=== PATIENT | male | born 1990 | race Caucasian/White ===

== ENCOUNTER 2017-02-03 10:40 | Emergency (ER) | payer SELFPAY ==
[~2017-02-03] VITALS: Ht 160 cm; Wt 72.7 kg
[2017-02-03 10:43] VITALS: BP 134/76; PULSE 66; RESP 14; TEMP 97.9; O2SAT 100
[2017-02-03 10:52] VITALS: BP 134/76; PULSE 65; RESP 14; TEMP 97.9; O2SAT 100
[2017-02-03 10:55] VITALS: O2SAT 99
[2017-02-03] MEDS ORDERED: hydrOXYzine PAMOATE 25 MG CAP PO ONE (11:00)
[2017-02-03 11:10] LABS: AUTOMATED NEUTROPHIL # 4.6 TH/MM3 (1.8-7.7); BASOPHIL # 0.1 TH/MM3 (0-0.2); BASOPHIL % 1.1 % (0.0-2.0); EOSINOPHIL # 0.3 TH/MM3 (0-0.4); EOSINOPHIL % 3.4 % (0.0-4.0); HEMATOCRIT 45.4 % (39.0-51.0); HEMO FLAGS DIFF FINAL; LYMPH % 25.7 % (9.0-44.0); MEAN CELL VOLUME 85.4 FL (80.0-100.0); MEAN CORPUSCULAR HEMOGLOBIN 29.3 PG (27.0-34.0); MEAN CORPUSCULAR HGB CONC 34.3 % (32.0-36.0); MONO % 9.7 % (0.0-8.0); NEUT % 60.1 % (16.0-70.0); PLATELET COUNT 262 TH/MM3 (150-450); RED BLOOD COUNT 5.32 MIL/MM3 (4.50-5.90); RED CELL DISTRIBUTION WIDTH 14.3 % (11.6-17.2); WHITE BLOOD COUNT 7.7 TH/MM3 (4.0-11.0)
--- NOTE | 2017-02-03 11:22 | PD ---
HPI Chief Complaint: Respiratory Distress Time Seen by Provider: 10:45 Travel History International Travel<30 days: No Contact w/Intl Traveler<30days: No Traveled to known affect area: No History of Present Illness HPI This is a 26-year-old male with a history of panic attacks, and presents today with respiratory distress. The patient states that about an hour ago, he started feeling short of breath. The called 911 and when paramedics arrived and placed him on oxygen and he stated he felt much better. When the patient arrived, he was taken off his oxygen. His O2 sat was 100%. EKG showed sinus bradycardia with a rate of 59 with no evidence of acute findings. The patient states he feels much improved. He denies any chest pain, chest pressure. He denied any long car rides or car trips. He denies any trauma to his legs or extremities. He does report that he's had an elevated heart rate in the past. He reports his been over 200 and thought that the term SVT sounded familiar. There are no other complaints time of my examination. [facility] Past Medical History Anxiety: Yes Heart Rhythm Problems: Yes (SVT) Cardiovascular Problems: Yes (SVT) Past Surgical History Surgical History: No Previous Surgery Social History Alcohol Use: No Tobacco Use: Yes Substance Use: Yes (DAILY, 02/03/17) Allergies-Medications (Allergen,Severity, Reaction): Coded Allergies: No Known Allergies (Unverified , 02/03/17) Reported Meds & Prescriptions Reported Meds & Active Scripts Active Vistaril (Hydroxyzine Pamoate) 25 Mg Cap 25 Mg PO TID PRN Review of Systems Except as stated in HPI: all other systems reviewed are Neg HENT: No: Headaches, Lightheadedness Cardiovascular: No: Chest Pain or Discomfort, Palpitations Respiratory: Positive: Shortness of Breath (resolved), No: Cough Gastrointestinal: No: Nausea, Vomiting, Abdominal Pain Genitourinary: No: Urgency, Frequency, Nocturia Musculoskeletal: No: Weakness, Pain Neurologic: No: Weakness, Dizziness, Headache Physical Exam Narrative GENERAL: Well-nourished, well-developed patient. SKIN: Focused skin assessment warm/dry. HEAD: Normocephalic. EYES: No scleral icterus. No injection or drainage. NECK: Supple, trachea midline. No JVD or lymphadenopathy. CARDIOVASCULAR: Sinus bradycardia with a rate of 58, 59 and normal rhythm without murmurs, gallops, or rubs. RESPIRATORY: Breath sounds equal bilaterally. No accessory muscle use. GASTROINTESTINAL: Abdomen soft, non-tender, nondistended. MUSCULOSKELETAL: No cyanosis, or edema. NEUROLOGICAL: Awake and alert. Cranial nerves II through XII intact. Motor grossly within normal limits. Five out of 5 muscle strength in all muscle groups. Normal speech. Data Data Last Documented VS Vital Signs Date Time Temp Pulse Resp B/P Pulse Ox O2 Delivery O2 Flow Rate FiO2 02/03/17 10:55 99 Room Air 02/03/17 10:52 97.9 65 14 134/76 Orders Electrocardiogram (02/03/17 10:52) Complete Blood Count With Diff (02/03/17 10:52) Basic Metabolic Panel (Bmp) (02/03/17 10:52) Iv Access Insert/Monitor (02/03/17 10:52) Ecg Monitoring (02/03/17 10:52) Oximetry (02/03/17 10:52) Hydroxyzine Pamoate (Vistaril) (02/03/17 11:00) Chest, Single Ap (02/03/17 11:22) Labs Laboratory Tests Test 02/03/17 10:55 White Blood Count 7.7 TH/MM3 Red Blood Count 5.32 MIL/MM3 Hemoglobin 15.6 GM/DL Hematocrit 45.4 % Mean Corpuscular Volume 85.4 FL Mean Corpuscular Hemoglobin 29.3 PG Mean Corpuscular Hemoglobin 34.3 % Concent Red Cell Distribution Width 14.3 % Platelet Count 262 TH/MM3 Mean Platelet Volume 8.5 FL Neutrophils (%) (Auto) 60.1 % Lymphocytes (%) (Auto) 25.7 % Monocytes (%) (Auto) 9.7 % Eosinophils (%) (Auto) 3.4 % Basophils (%) (Auto) 1.1 % Neutrophils # (Auto) 4.6 TH/MM3 Lymphocytes # (Auto) 2.0 TH/MM3 Monocytes # (Auto) 0.7 TH/MM3 Eosinophils # (Auto) 0.3 TH/MM3 Basophils # (Auto) 0.1 TH/MM3 CBC Comment DIFF FINAL Differential Comment Sodium Level 137 MEQ/L Potassium Level 4.1 MEQ/L Chloride Level 105 MEQ/L Carbon Dioxide Level 19.5 MEQ/L Anion Gap 13 MEQ/L Blood Urea Nitrogen 9 MG/DL Creatinine 0.82 MG/DL Estimat Glomerular Filtration 115 ML/MIN Rate Random Glucose 94 MG/DL Calcium Level 9.7 MG/DL MDM Medical Decision Making Medical Screen Exam Complete: Yes Emergency Medical Condition: Yes Differential Diagnosis Panic attack versus SVT that resolved versus anemia versus pulmonary embolus Narrative Course 26-year-old male presents after having what seems to be a panic attack. The patient's had previous panic attacks. Patient's chest x-ray, EKG, and blood work appear fine other than a low sodium bicarbonate which be consistent with hyperventilation syndrome. The patient was given 25 mg of Vistaril by mouth. He is asymptomatic. He'll be discharged with a prescription for Vistaril told to take 25 mg 3 times a day as needed for anxiety. He is instructed to find a primary care physician in the area since he'll be moving here for work. Diagnosis Primary Impression: suspected panic attack Additional Instructions: Avoid stressful situations. Follow up with primary care physician. Med/Other Pt SpecificInfo: Prescription(s) given Scripts Hydroxyzine Pamoate (Vistaril)25 Mg Cap25 Mg PO TID PRN (ANXIETY) #20 CAP Ref 0 Prov:Kenrick Masters MD 02/03/17 Disposition: 01 DISCHARGE HOME Condition: Stable Kenrick Masters MD Feb 03, 2017 11:22
[2017-02-03 11:25] LABS: BICARBONATE 19.5 MEQ/L (21.0-32.0)
[2017-02-03 11:28] LABS: POTASSIUM 4.1 MEQ/L (3.5-5.1)
--- NOTE | 2017-02-03 11:52 | RADRPT ---
EXAM DATE/TIME: 02/03/2017 11:39 [facility] COMPARISON: No previous studies available for comparison. INDICATIONS : Shortness of breath. MEDICAL HISTORY : Asthma. SURGICAL HISTORY : None. ENCOUNTER: Initial ACUITY: 2 days PAIN SCORE: 0/10 LOCATION: Bilateral chest FINDINGS: A single view of the chest demonstrates the lungs to be symmetrically aerated without evidence of mas s, infiltrate or effusion. The cardiomediastinal contours are unremarkable. Osseous structures are intact. CONCLUSION: No acute disease. Zan Escobar MD FACR on February 03, 2017 at 11:50 Board Certified Radiologist. This report was verified electronically.
[2017-02-03] MEDS ORDERED: VIST25CA PO (12:21)
--- NOTE | 2017-02-04 09:47 | EKG ---
Date Performed: 02/03/2017 Time Performed: 11:02:44 PTAGE: 26 years EKG: SINUS BRADYCARDIA BORDERLINE ECG PREVIOUS TRACING : 02/03/2017 11.02 DOCTOR: Arian Mueller Interpretating Date/Time 02/06/2017 07:32:39
== END 2017-02-03 13:39 | disposition home or self-care (01) ==
LOC: NEPC 10:40
DX: R06.02 Shortness of breath (principal); R00.1 Bradycardia, unspecified; I47.1 Supraventricular tachycardia; Z72.0 Tobacco use
CPT/HCPCS: 71010; 80048; 85025; 93005; 99285; Q0177

== ENCOUNTER 2017-02-03 23:33 | Emergency (ER) | payer SELFPAY ==
[~2017-02-03] VITALS: Ht 162.6 cm; Wt 75.0 kg
[~2017-02-03 23:33] MED LIST: VIST25CA PO
[2017-02-03 23:44] VITALS: BP 136/75; PULSE 98; RESP 16; TEMP 98.2; O2SAT 100
--- NOTE | 2017-02-04 00:24 | PD ---
HPI Chief Complaint: Anxiety Time Seen by Provider: 00:17 Travel History International Travel<30 days: No Contact w/Intl Traveler<30days: No Traveled to known affect area: No History of Present Illness HPI Patient is a 26-year-old male who was seen today and diagnosed with a possible anxiety reaction returns to the emergency department after having an anxiety reaction at home. He states he took his medicine which she was prescribed and is now feeling much better. He did endorse some numbness and tingling in his hands and feet which is now resolved. Apparently a friend of his Jessie that this could be symptoms of carbon monoxide poisoning and wanted them tested for that. Patient denies being exposed to any smoke or fire and denies running the car in the garage. Denies any chest pain shortness of breath abdominal pain nausea vomiting diarrhea headache or injury. PFSH Past Medical History Anxiety: Yes Heart Rhythm Problems: Yes (SVT) Cardiovascular Problems: Yes (SVT) Past Surgical History Surgical History: No Previous Surgery Social History Alcohol Use: No Tobacco Use: Yes Substance Use: Yes (DAILY, 02/03/17) Allergies-Medications (Allergen,Severity, Reaction): Coded Allergies: No Known Allergies (Unverified , 02/03/17) Reported Meds & Prescriptions Reported Meds & Active Scripts Active Vistaril (Hydroxyzine Pamoate) 25 Mg Cap 25 Mg PO TID PRN Review of Systems Except as stated in HPI: all other systems reviewed are Neg Physical Exam Narrative GENERAL: Well-nourished, well-developed patient. SKIN: Focused skin assessment warm/dry. HEAD: Normocephalic. EYES: No scleral icterus. No injection or drainage. NECK: Supple, trachea midline. No JVD or lymphadenopathy. CARDIOVASCULAR: Regular rate and rhythm without murmurs, gallops, or rubs. RESPIRATORY: Breath sounds equal bilaterally. No accessory muscle use. GASTROINTESTINAL: Abdomen soft, non-tender, nondistended. MUSCULOSKELETAL: No cyanosis, or edema. BACK: Nontender without obvious deformity. No CVA tenderness. Data Data Last Documented VS Vital Signs Date Time Temp Pulse Resp B/P Pulse Ox O2 Delivery O2 Flow Rate FiO2 02/03/17 23:44 98.2 98 16 136/75 100 MDM Medical Decision Making Medical Screen Exam Complete: Yes Emergency Medical Condition: Yes Differential Diagnosis Anxiety, paresthesias, carbon monoxide poisoning is extremely unlikely. Narrative Course Patient roomed in emergency department, sleeping but easily arousable on my initial examination. He appears well and in no distress. The risks of her radial artery stick outweigh the benefits at this time as this patient is not suffering from carbon monoxide poisoning. He is stable for discharge. He is here with his brother who is clinically sober and will driving home. Diagnosis Primary Impression: SOB (shortness of breath) Additional Instructions: Follow-up with a regular physician or the [place] [facility]. Disposition: 01 DISCHARGE HOME Condition: Stable Demarcus Deluca MD Feb 04, 2017 00:24
== END 2017-02-04 00:35 | disposition home or self-care (01) ==
LOC: NEPE 23:33
DX: R06.02 Shortness of breath (principal); R20.0 Anesthesia of skin; I47.1 Supraventricular tachycardia; Z72.0 Tobacco use
CPT/HCPCS: 99283